=== PATIENT | female | born 1950 | race Caucasian/White ===

== ENCOUNTER 2017-05-24 12:57 | Inpatient (IN) | payer MEDICARE, OTHER ==
--- NOTE | ~2017-05-24 | CT71 ---
[facility] A Service of [facility] & [facility] RADIOLOGY TEXT RESULTS PATIENT: JENNIFER VILLARREAL LOCATION: [facility] 330-01 : [birth year] UNIT #: [id number] AGE: [address]: Shila Nolan MD SEX: F ORDER DR: [id number] [facility] [address]. [place], [place] [address] [id number] I MR#: [id number] #: [id number] NAME: JENNIFER VILLARREAL : 1950 SEX: F STUDY DATE/TIME: 05/24/2017 16:44 UNIT: A PCU ROOM: 330 STUDY DESCRIPTION: CT Head Wo Contrast Attending Physician: Shila Nolan M.D. Ordering Physician: Gris Saenz M.D. Primary Care Physician: Reina Riojas M.D. MEDICAL IMAGING REPORT This report is preliminary unless electronic signature is present EXAM CT head, 05/24/2017. HISTORY Dizzy for 1 week. Sent by [facility]. Blurred vision, seeing spots. TECHNIQUE CT head performed skull base through vertex without intravenous contrast. Study degraded by streak/motion artifact despite repetition of some images. This CT exam was performed with one or more of the following radiation dose reduction techniques: automatic exposure control, adjustment of mA and/or kV according to patient size, and iterative reconstruction. COMPARISON 07/03/2011 FINDINGS Brainstem unremarkable. The cerebellum shows no acute abnormality. In the posteromedial right parietooccipital lobe, there is an area of diminished russo matter-white matter differentiation measuring approximately 3.3 cm x 2.3 cm, new compared to prior examination. Appearance suggests subacute ischemic infarct. There is some mild associated edema and loss of sulcation in this region. There is no significant midline shift. There is no evidence of hemorrhagic conversion. This is probably in the right posterior cerebral artery distribution. No other areas of acute to subacute cortical ischemia are clearly suggested. There are no areas of hemorrhage. The ventricles, cisterns, and sulci show mild overall enlargement consistent with mild generalized atrophy. Basal ganglia show small chronic-appearing lacunar infarct in the left caudate nucleus head. No intracranial fluid collection. There are cavernous carotid and distal vertebral arterial calcifications. The intraorbital soft tissues are unremarkable. The [facility] A Service of [facility] RADIOLOGY TEXT RESULTS PATIENT: JENNIFER VILLARREAL LOCATION: [facility] 330-01 : [birth year] UNIT #: [id number] AGE: [address]: Shila Nolan MD SEX: F ORDER DR: visualized paranasal sinuses and mastoid air cells are clear. No fracture. IMPRESSION 1. Abnormal examination. In the posteromedial right parietooccipital junction region, there is an area of diminished russo matter-white matter differentiation measuring 2.3 cm x 3.3 cm. Appearance favors acute to subacute ischemia/ischemic infarct. There is mild associated edema with loss of sulcation but there is no midline shift or downward herniation. There is no associated hemorrhage. This is probably in the distribution of right posterior cerebral artery. 2. No other clearly acute abnormalities are seen. The study is degraded by motion artifact despite repetition of some images. 3. There are relatively mild periventricular and deep white matter tract probable sequelae of chronic microvascular ischemia. There is mild generalized atrophy. There are cavernous carotid and distal vertebral arterial calcifications. Dictated by... Earl Acevedo M.D. THIS IS AN ELECTRONICALLY VERIFIED REPORT Earl Acevedo M.D. at 05/25/2017 10:21 AM Lavern TD: 05/25/2017 09:43 JOB #: [id number] MEDICAL IMAGING REPORT Page 1 of 1 COPY
--- NOTE | ~2017-05-24 | CO ---
Unit #: [id number] #: [id number] Patient: JENNIFER VILLARREAL [id number] [facility] [address]. [place], [place] [address] [id number] I MR#: [id number] NAME: JENNIFER VILLARREAL ROOM: 330 Age: 66 Sex: F Admission Date: 05/24/2017 : 1950 Attending Physician: Shila Nolan M.D. Primary Care Physician: Reina Riojas M.D. Consultation Date: 05/25/2017 CONSULTATION REPORT PRIMARY CARE PHYSICIAN Dr. Reina Riojas. CONSULTING PHYSICIAN Dr. Jen Jay. REASON FOR CONSULTATION Subacute CVA. PATIENT IDENTIFICATION This is a 66-year-old right-handed female, evaluated in room 330 at [facility]. SOURCE OF INFORMATION Obtained from the patient as well as medical record. HISTORY OF PRESENT ILLNESS This is a very pleasant 66-year-old right-handed female, with a past medical history of anemia, TIA, anxiety, depression, hypertension, COPD, diabetes mellitus type 2, reformed smoker, who presents to [facility] with complaints of feeling off balance and vision loss for approximately one week. Apparently about a week ago, she was in her usual state of health when she noticed that she was having difficulty with ambulation, she feels as though she lost her balance. She states that she did not feel weak on one side or the other, but simply that she fell off balanced. She denies loss of consciousness. She states that she was afraid to drive as she felt as though she was having some trouble with her vision as well. She states that her vision felt more blurred, but was worried about that and just overall felt as though "something was off." She called her ex-, who lives in the same apartment building with her, and he subsequently, took her to [facility] on the day of admission, where they were instructed to go to the emergency room. She subsequently presented to [facility]. She underwent a CT of the head, which did reveal hypodensity in the right PERSONNEL SPECIALIST territory concerning for acute to subacute ischemic infarct. She was admitted for workup and further evaluation of stroke and also atrial fibrillation as she was found to be in atrial fibrillation on the monitor. However, she is converted to normal sinus rhythm. She has been complaining of heart palpitations for several months. Cardiology is evaluating from that standpoint. She is unaware of any prior diagnosis of atrial fibrillation or any heart disease. She denies any headache, fever, chills, nausea, vomiting, change in weight or routine, change in medications, loss of consciousness, or loss of awareness. She denies any focal weakness or paresthesia, shortness of air, chest pain, or abdominal Unit #: [id number] #: [id number] Patient: JENNIFER VILLARREAL. Otherwise, pertinent positives are as discussed above review of systems. PAST MEDICAL HISTORY 1. Hernia repair with infected wound mesh in 2013, admitted to [facility]. 2. Morbid obesity. 3. Reformed smoker, she quit 18 years ago. 4. Diabetes mellitus type 2. 5. Chronic anemia. 6. GERD. 7. TIA, details unknown. 8. Trigeminal neuralgia. 9. Anxiety. 10. Depression. 11. Hypertension. 12. COPD. 13. Bilateral tubal ligation. 14. . ALLERGIES 1. Sulfa. 2. Codeine. 3. Diphenhydramine. 4. Atrovent. HOME MEDICATIONS As per med rec include: 1. Albuterol sulfate. 2. Ventolin inhaler. 3. Glucophage. 4. Atorvastatin. 5. Metoprolol tartrate. 6. Zestril. 7. Prilosec. 8. Carbatrol. 9. Vitamin D. 10. Enteric-coated aspirin 1 tab p.o. daily. REVIEW OF SYSTEMS A 14-point review of systems attempted. Pertinent positives are as discussed above, otherwise negative. PHYSICAL EXAMINATION VITAL SIGNS: Temperature 98.6, she has been afebrile, pulse , respirations 18, blood pressure 101/52, blood pressure in the ER on arrival was 136/69, oxygen saturation 100%. Height 5 feet 0 inches, weight 261 pounds, BMI 51. NEUROLOGIC: The patient is awake, fully alert, and oriented x4. Speech is clear. She recognizes her ex- at the bedside. She follows simple commands and 2- and 3-step commands without difficulty. She has no right or left confusion. No finger agnosia. No aphasia, dysarthria, or apraxia. Cranial nerve exam, she demonstrates a left homonymous hemianopia. Eyes are conjugate without ptosis or nystagmus. Extraocular movements are intact. Sensation of face and scalp is intact. Strength of the muscles of facial expression is intact. Hearing is intact to finger rub and conversation. Tongue is midline. Uvula is midline. Palate elevation is normal. Head turning and shoulder shrug are unremarkable. Neck is supple. Motor exam, she Unit #: [id number] #: [id number] Patient: JENNIFER VILLARREAL demonstrates normal bulk and tone. Strength is equal 5/5 in all extremities. Sensory exam intact. No extinction appreciated. Gait deferred. Romberg deferred. Reflexes, unable to elicit coordination unremarkable. left homonymous hemianopia and one for some minimal visual neglect. DIAGNOSTIC STUDIES IMAGING STUDIES: CT of the head without contrast on 05/24/2017; impression per Radiology report. Abnormal examination in the posterior medial right parietal-occipital junction region, there is an area of diminished russo-white matter differentiation measuring 2.3 x 3.3 cm acute to subacute ischemic infarct. There is mild associated edema with loss of sulcation, but there is no midline shift or downward herniation. There is no associated hemorrhage. This is probably in the distribution of the right posterior cerebral artery. No other clearly acute abnormality seen. Study is degraded by motion artifact despite repetition of some images. There are relatively mild periventricular deep white matter , probable sequelae of chronic microvascular ischemia. There is mild generalized atrophy. There are cavernous carotid and distal vertebral arterial calcification. Laboratory data: CBC on arrival shows a white count of 9.6, hemoglobin 12, hematocrit of 37.6, platelet count 280. BMP on arrival is unremarkable, other than a GFR of 58.3, creatinine is 1. Alkaline phosphatase is 126. Initial troponin less than 0.05. Urinalysis unremarkable. Repeat troponin less than 0.05. CPK 53. Urine drug screen unremarkable. TSH 1.91, B12 of 299, hemoglobin A1c 6.1, CRP 0.9. Other labs and diagnostic studies are as per chart and have been reviewed. IMPRESSION 1. Subacute right posterior cerebral artery territory ischemic stroke with left homonymous hemianopia likely secondary to atrial fibrillation. 2. Atrial fibrillation, now converted to sinus rhythm. 3. Diabetes mellitus type 2. 4. Chronic obstructive pulmonary disease. 5. Reformed smoker x18 years. 6. Morbid obesity. PLAN The patient needs long-term anticoagulation given her CHADS2 VASc score, but she is at risk currently for hemorrhage given the location and timing of her stroke. I discussed with Dr. Sanabria and also with Cardiology. At this time, recommend full-dose aspirin for another week. The symptoms have been going on for 7 to 10 days and then recommend switching to anticoagulation NOAC or warfarin upon evaluation cardiac camacho, and if we find out left atrial appendage clot or fresh thrombus, then we may have to consider anticoagulation sooner. A 2D echo is pending and she needs a IRENE pending, those echo results will be followed up on that with Cardiology, we will also request a CT angiogram to look at intracranial vessels and rule out any extensive posterior circulation, intracranial atherosclerosis. Further recommendations to be made pending workup and further clinical course. She is not a candidate for acute intervention or thrombectomy. Symptoms have been ongoing for several days. We will follow along with you. We thank you very much for allowing us to assist in the care of this patient. The patient was seen by him, he agrees to the above. Please see his note. Unit #: [id number] #: [id number] Patient: JENNIFER VILLARREAL Dictated by... Sonia Kerr A.P.R.N. for Flor Espinoza/alexis TD: 05/26/2017 16:14 JOB #: [id number] CONSULTATION REPORT Page 1 of 1 X Sonia Kerr APRN X CONSULTATION REPORT
--- NOTE | ~2017-05-24 | EKG ---
PATIENT: JENNIFER VILLARREAL UNIT #: [id number] Ventricular Rate: 69 BPM Atrial Rate: 69 BPM P-R Interval: 158 ms QRS Duration: 92 ms Q-T Interval: 412 ms QTC Calculation(Bezet): 441 ms P Hague: 34 degrees Calculated R Hague: -31 degrees Calculated T Hague: 66 degrees Diagnosis Line: Normal sinus rhythm Diagnosis Line: Possible Left atrial enlargement Diagnosis Line: Left axis deviation Diagnosis Line: Abnormal ECG Diagnosis Line: When compared with ECG of 22-DEC-2016 13:07, Diagnosis Line: No significant change was found Diagnosis Line: Confirmed by BETH ALMANZAR MD ([id number]) on Diagnosis Line: 05/25/2017 11:10:45 AM INTERPRETING MD: YOHAN BUCK
--- NOTE | ~2017-05-24 | EKG ---
PATIENT: JENNIFER VILLARREAL UNIT #: [id number] Ventricular Rate: 129 BPM Atrial Rate: 129 BPM P-R Interval: 216 ms QRS Duration: 84 ms Q-T Interval: 336 ms QTC Calculation(Bezet): 492 ms P Enterprise: 100 degrees Calculated R Enterprise: -24 degrees Calculated T Enterprise: 71 degrees Diagnosis Line: Atrial fibrillation Abnormal ECG Diagnosis Line: When compared with ECG of 24-MAY-2017 13:12, Diagnosis Line: (unconfirmed) Diagnosis Line: Premature atrial complexes are now Present Diagnosis Line: OK interval has increased Diagnosis Line: Vent. rate has increased BY 60 BPM Diagnosis Line: Confirmed by ALEX NELSON MD ([id number]) on 05/27/2017 Diagnosis Line: 7:52:59 AM INTERPRETING MD: LESLIE BUCK
--- NOTE | ~2017-05-24 | BMI ---
[employer] Nutrition Therapy DATE: 05/25/17 Patient: JENNIFER VILLARREAL Physician: DAMIÁN Address: [address] Room/Bed: [address] [place] [address], Zip: [place] [address] Admit Date: 05/24/17 Date of : [birth year] Height: 5 0 Weight: 261 118.4 HIGH BMI NOTE: ANTHROPOMETRICS: HT: 60" WT: 118.4 KG BMI: 51 DIET: CONSISTENT CARBOHYDRATE RECOMMENDATIONS: 1. ADD HEART HEALTHY DIET RESTRICTION TO PROMOTE GRADUAL WEIGHT LOSS TOWARDS HEALTHY BMI. Respectfully, SHAHID JACK RD, LD [employer] [facility] cc: client file
--- NOTE | ~2017-05-24 | HP ---
Unit #: [id number] #: [id number] Patient: JENNIFER VILLARREAL [id number] [facility]. [place], [place] [address] [id number] MR#: [id number] NAME: JENNIFER VILLARREAL ROOM: Age: 66 Sex: F Admission Date: 05/24/2017 : 1950 Attending Physician: Jeremy Varghese M.D. Primary Care Physician: Reina Riojas M.D. HISTORY AND PHYSICAL REASON FOR ADMISSION Subacute CVA, visual loss, atrial fibrillation new onset. HISTORY OF PRESENT ILLNESS The patient is a 66-year-old female who states over the past seven days she has had off and on difficulty with ambulation. She has become quite ataxic at home. She lost her balance several times. She had no formal syncopal episodes; however, she states that she had to holds onto her rails in her home, was afraid to drive. She called her ex- who takes care of her. He subsequently took her to [facility] where they asked him to take her to the emergency room. She subsequently presented here where she underwent a CT head which did reveal a right occipital subacute CVA, official report not available to me. At the present time, on the monitor, patient is noted to be in atrial fibrillation. Although EKG performed shows normal sinus, the monitor shows afib. Patient is unaware of any prior diagnosis of atrial fibrillation. Patient denies any sick contacts. No nausea or vomiting. She has had difficulty with ambulation as outlined above. She states that about six months ago she began developing heart palpitations as well as mild chest discomfort but she did not see her primary care physician for. She also tells me she quit smoking approximately 18 years ago and she takes her medications as prescribed. PAST MEDICAL HISTORY 1. Hernia repair with infected wound mesh in 2013, admitted to [facility]. 2. Diabetes type 2. 3. Chronic anemia. 4. GERD. 5. TIA history. 6. Trigeminal neuralgia. 7. Anxiety. 8. Depression. 9. Hypertension. 10. COPD. 11. Prior history of dizziness. 12. Bilateral tubal ligation. 13. . 14. Prior history of tobacco abuse. Unit #: [id number] #: [id number] Patient: JENNIFER VILLARREAL CURRENT HOME MEDICATIONS 1. Albuterol nebulize solution q.6 h. 2. Ventolin p.r.n. 3. Metformin. 4. Atorvastatin. 5. Metoprolol. 6. Lisinopril. 7. Omeprazole. 8. Tegretol. 9. Vitamin D. SOCIAL HISTORY Negative tobacco use, negative alcohol use, negative illicit drug use per patient. FAMILY HISTORY Reviewed, positive diabetes, hypertension, coronary artery disease. ALLERGIES Atrovent, Benadryl, sulfa, codeine. REVIEW OF SYSTEMS Please see HPI. Twelve points otherwise negative except for those positive as noted in the HPI. PHYSICAL EXAMINATION VITAL SIGNS: Temperature 98.1, pulse 64, respiratory rate 16, blood pressure 136/69. GENERAL APPEARANCE: The patient is a 66-year-old very pleasant female lying in no acute distress. HEAD EXAM: Normocephalic and atraumatic. EAR EXAM: Tympanic membranes dry, without any erythema or injection. NECK EXAM: Supple. CVS: S1, S2, irregularly irregular. No murmur heard. RESPIRATORY: Prolonged expiration noted bilaterally. GI/ABDOMEN: Distended abdomen noted but nontender. LOWER EXTREMITIES: Have no evidence of any lower extremity edema, no calf tenderness. NEUROLOGICAL EXAM: Patient alert and oriented x3. Cranial nerves II through XII grossly intact with the exception patient does exhibit a visual loss in left visual field. She exhibits motor function 5/5 in both upper and lower extremities. PSYCHIATRIC EXAM: Patient demonstrates normal mood and affect. DIAGNOSTIC STUDIES LABORATORY: Initial laboratory studies show cardiac enzymes first set negative, urinalysis negative, BMP otherwise unremarkable, CBC shows a hemoglobin of 12, a white count of 9.6. INITIAL ADMISSION DIAGNOSES 1. Subacute cerebrovascular accident. 2. Visual loss. 3. New onset atrial fibrillation. 4. Chronic obstructive pulmonary disease history. 5. Heart palpitations x6 months. 6. Diabetes. 7. Anxiety/depression. Unit #: [id number] #: [id number] Patient: JENNIFER VILLARREAL 8. Prior history of tobacco abuse. PLAN Admission, stroke protocol, neurology consultation, routine laboratory studies, MRI/MRA brain/neck, cardiology consultation, 2D echocardiogram for new onset atrial fibrillation although initial EKG does not show but a heart monitor shows otherwise, PT/OT evaluation, symptom management. Plans were reviewed with patient in detail. She expresses understanding and agreement. She is a Full Code. All questions answered. Further hospital course to follow. Dictated by Flor Altman/nelson TD: 05/24/2017 19:28 JOB #: [id number] HISTORY AND PHYSICAL Page 1 of 1 X Jen Jay MD X HISTORY AND PHYSICAL
--- NOTE | ~2017-05-24 | CT17 ---
[facility] A Service of [facility] & [facility] RADIOLOGY TEXT RESULTS PATIENT: JENNIFER VILLARREAL LOCATION: [facility] 330- : [birth year] UNIT #: [id number] AGE: [address]: Shila Nolan MD SEX: F ORDER DR: [id number] [facility] [address] [place], [place] [address] [id number] I MR#: [id number] Acc #: [id number] NAME: JENNIFER VILLARREAL : 1950 SEX: F STUDY DATE/TIME: 05/25/2017 16:05 UNIT: [address] ROOM: [facility] STUDY DESCRIPTION: CT Angio Head Attending Physician: Shila Nolan M.D. Ordering Physician: Kamila Sanabria M.D. Primary Care Physician: Reina Riojas M.D. MEDICAL IMAGING REPORT This report is preliminary unless electronic signature is present EXAM CT scan of the head with angiographic reconstructions INDICATIONS Subacute stroke with headache starting today. Abnormal CT earlier today with low-density area in right occipital region. FINDINGS Please see CT ANGIO NECK report for combined text results. Dictated by... Guzman Bartlett M.D. THIS IS AN ELECTRONICALLY VERIFIED REPORT Guzman Bartlett M.D. at 05/26/2017 5:49 AM BROOKE/an TD: 05/26/2017 01:38 JOB #: [id number] MEDICAL IMAGING REPORT Page 1 of 1 COPY
--- NOTE | ~2017-05-24 | CT23 ---
[facility] A Service of [facility] & [facility] RADIOLOGY TEXT RESULTS PATIENT: JENNIFER VILLARREAL LOCATION: [facility] 330-01 : [birth year] UNIT #: [id number] AGE: [address]: Shila Nolan MD SEX: F ORDER DR: [id number] [facility] [address]. [place], [place] [address] [id number] I MR#: [id number] Acc #: [id number] NAME: JENNIFER VILLARREAL : 1950 SEX: F STUDY DATE/TIME: 05/25/2017 16:05 [facility] ROOM: 330 STUDY DESCRIPTION: CT Angio Neck Attending Physician: Shila Nolan M.D. Ordering Physician: Kamila Sanabria M.D. Primary Care Physician: Reina Riojas M.D. MEDICAL IMAGING REPORT This report is preliminary unless electronic signature is present EXAM CT scan of the head and neck with angiographic reconstructions INDICATIONS Subacute stroke with headache starting today. Abnormal CT earlier today with low-density area in right occipital region. TECHNIQUE The patient was given 100 mL of Isovue-370 and spiral imaging was performed from the aortic arch through the brain. 3-D reconstructions of the arteries were generated. NASCET criteria was utilized. This CT exam was performed with one or more of the following radiation dose reduction techniques: Automatic exposure control, adjustment of mA and/or kV according to patient size, and iterative reconstruction. FINDINGS The lung apices are clear. The thyroid gland and submandibular glands and parotid glands are normal in appearance. There are no neck masses or adenopathy. CT brain findings again show a hypodense area in the right occipital region. VASCULAR FINDINGS The aortic arch is normal in size. The great vessels are patent. The vertebral arteries both arise from the subclavian arteries and they appear normal and they unite to form the basilar artery. The common carotid arteries are normal up to the bifurcations where there is some calcifications bilaterally. There is no significant stenosis in the bulb or internal carotid arteries. The basilar artery appears normal. Posterior cerebral arteries seem to show a high-grade stenosis in the P2 portion of the right posterior cerebral artery. The left posterior cerebral artery is normal, and the anterior and middle cerebral arteries are normal. There is an anterior communicating artery present. [facility] A Service of [facility] & [facility] RADIOLOGY TEXT RESULTS PATIENT: JENNIFER VILLARREAL LOCATION: [facility] 330- : [birth year] UNIT #: [id number] AGE: [address]: Shila Nolan MD SEX: F ORDER DR: IMPRESSION 1. There appears to be a high-grade stenosis in the distal right posterior cerebral artery which seems to correspond with the area of subacute ischemic change. 2. Otherwise, the CTA of the head and neck is normal, except for minimal calcified plaques in the carotid bifurcation regions. Dictated by... Guzman Bartlett M.D. THIS IS AN ELECTRONICALLY VERIFIED REPORT Guzman Bartlett M.D. at 05/26/2017 5:49 AM BROOKE/an TD: 05/26/2017 01:35 JOB #: [id number] MEDICAL IMAGING REPORT Page 1 of 1 COPY
--- NOTE | ~2017-05-24 | DS ---
Unit #: [id number] #: [id number] Patient: JENNIFER TIDWELL [id number] [address] [address] [id number] I MR#: [id number] NAME: JENNIFER TIDWELL ROOM: 330 Age: 66 Sex: F Admission Date: 05/24/2017 : 1950 Discharge Date: 05/26/2017 Attending Physician: Shila Nolan M.D. Primary Care Physician: Reina Riojas M.D. DISCHARGE SUMMARY PRINCIPAL DIAGNOSES 1. Subacute right occipital cardioembolic CVA. 2. Paroxysmal atrial fibrillation, now converted to normal sinus rhythm. 3. 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 4. Mild vitamin B12 deficiency with a vitamin B12 level of 299. 5. Diabetes mellitus type 2, controlled with hemoglobin A1C of 6.0. 6. Anxiety and depression. 7. Hypertension. 8. Chronic obstructive pulmonary disease. 9. Probable obstructive sleep apnea. 10. Mild protein malnutrition. 11. Morbid obesity. 12. Mild to moderate aortic stenosis. 13. Chronic diastolic congestive heart failure without exacerbation. CONSULTANTS Dr. Sanabria, neurology. Dr. Nazario, cardiology. PROCEDURES PERFORMED Two-dimensional echocardiogram on 05/25/2017, with mild to moderate aortic stenosis. Mild tricuspid regurgitation. Right ventricular systolic pressure of 35 mmHg. Moderately to severe dilated left ventricular atrium. Mild concentric left ventricular hypertrophy noted. Grade 2 diastolic dysfunction noted. DIAGNOSTIC DATA IMAGING: CT of the head without contrast on 05/24/2017 with diminished russo-white matter differentiation measuring 2.3 x 3.3 cm in the posteromedial right parietal occipital region. This is consistent with subacute infarct. Mild associated edema noted. Mild periventricular and deep white matter tract sequelae of small vessel disease noted. CT angiogram of the head and neck on 05/25/2017 with high-grade stenosis in the distal right posterior cerebral artery. CTA otherwise normal. MRI of the brain without contrast on 05/25/2017 with a 3.5 x 2 cm subacute ischemia change in the right occipital lobe. CLINICAL HISTORY/HOSPITAL COURSE Ms. Tidwell is a nice 66-year-old female who presented to the emergency department with a 7-day history of visual change. Please refer to history and physical for further details. CT scan of the head revealed subacute infarct of the right parietooccipital region and the patient was Unit #: [id number] #: [id number] Patient: JENNIFER TIDWELL subsequently admitted. Neurology was consulted in regard to the patient's stroke. It was noted on hospitalization, as outlined below, that the patient had paroxysmal atrial fibrillation. Two-dimensional echo was done as noted. Given the patient's high CHADS 2 VAD score, it is felt that she would benefit from anticoagulation in addition to lipid lowering therapy and lifestyle modification. We are going to place her on Xarelto, assuming it is not cost prohibitive. She will follow up with neurology as an outpatient. I will note she does have high-grade stenosis of the right CARTOGRAPHY TECHNICIAN and this can be followed up by neurology as an outpatient as well, with intervention as necessary. In regard to the patient's atrial fibrillation, again, this was noted during hospitalization. The patient had symptomatic palpitations at home intermittently for the last six months. Cardiology was consulted. The patient's CHADS 2 VAD score is approximately, thus indicating she needs anticoagulation. She has been converted back to normal sinus rhythm on medications as outlined below. Given she is currently in normal sinus rhythm, we are going to hold anticoagulation for one week due to her stroke, given it is of decent size. She will initiate Xarelto as outlined below. The patient's other chronic conditions remained stable and she will be discharged home today. DISCHARGE CONDITION Stable. DISPOSITION Discharge to home. DISCHARGE MEDICATIONS 1. Albuterol sulfate nebulizer solution, 3 ml q.i.d. p.r.n. shortness of breath. 2. Ventolin 2 puffs q.i.d. p.r.n. shortness of breath. 3. Carbamazepine 300 mg t.i.d. 4. Metformin at home dose b.i.d. 5. Cardizem 30 mg t.i.d. 6. Metoprolol tartrate 25 mg b.i.d. 7. Lipitor 40 mg at bedtime. 8. Lisinopril 40 mg daily. 9. Aspirin 81 mg daily. 10. Prilosec 40 mg daily. 11. Vitamin D 2000 units daily. 12. Vitamin B12 1000 mcg p.o. daily. 13. Xarelto 20 mg daily beginning 05/31/2017. DIET The patient is instructed to follow a heart healthy, constant carb diet. ACTIVITY She can increase her activity as tolerated. She is not allowed to drive at this time due to her vision change and her ex- agrees to be her transport. FOLLOWUP 1. The patient is to follow up with Dr. Jelani Springer of outpatient Unit #: [id number] #: [id number] Patient: JENNIFER TIDWELL neurology in four to six weeks. 2. The patient will follow up with Dr. Nazario in four weeks as well. 3. She can follow up with her primary care provider in two to four weeks. 4. She has been counseled regarding weight loss and needs outpatient sleep apnea study. Dictated by... Shila Nolan M.D. JASON/kortney TD: 05/27/2017 15:53 JOB #: [id number] DISCHARGE SUMMARY Page 1 of 1 X Shila Nolan MD X DISCHARGE SUMMARY
--- NOTE | ~2017-05-24 | MR18 ---
[facility] A Service [facility] RADIOLOGY TEXT RESULTS PATIENT: JENNIFER VILLARREAL LOCATION: [facility] 330- : [birth year] UNIT #: [id number] AGE: [address]: Shila Nolan MD SEX: F ORDER DR: [id number] [id number] [facility]. [place], [place] [address] [id number] I MR#: [id number] #: [id number] NAME: JENNIFER VILLARREAL : 1950 SEX: F STUDY DATE/TIME: 05/25/2017 23:17 [facility]: [facility] STUDY DESCRIPTION: MR Brain Wo Contrast Attending Physician: Shila Nolan M.D. Ordering Physician: Kamila Sanabria M.D. Primary Care Physician: Reina Riojas M.D. MRI CENTER REPORT This report is preliminary unless electronic signature is present. EXAM MRI of the brain without contrast INDICATIONS Dizziness and blurry vision off and on for [address] scan showing right posterior cerebral artery subacute infarct. TECHNIQUE Sagittal T1-weighted images and axial T1, T2, FLAIR and diffusion images were obtained. FINDINGS The study is degraded by motion. The pituitary gland and foramen magnum region are normal. The diffusion series does show restricted diffusion in the medial right occipital lobe measuring about 3.6 cm in maximum dimension. No other abnormal diffusion is identified. The ventricles and subarachnoid spaces are otherwise normal. IMPRESSION There is about a 3.5 cm x 2-cm area of subacute ischemic change in the right occipital lobe corresponding with what was seen on the CT scan earlier. Otherwise, the MRI of the brain appears normal. Dictated by... Guzman Bartlett M.D. THIS IS AN ELECTRONICALLY VERIFIED REPORT Guzman Bartlett M.D. at 05/26/2017 5:49 AM FEL/psc TD: 05/26/2017 02:59 [facility] A [facility] RADIOLOGY TEXT RESULTS PATIENT: JENNIFER VILLARREAL LOCATION: [facility] 330-01 : [birth year] UNIT #: [id number] AGE: [address]: Shila Nolan MD SEX: F ORDER DR: JOB #: [id number] MRI CENTER REPORT Page 1 of 1 COPY
--- NOTE | ~2017-05-24 | CO ---
Unit #: [id number] #: [id number] Patient: JENNIFER VILLARREAL [id number] [address] [place], [place] [address] [id number] I MR#: [id number] NAME: JENNIFER VILLARREAL ROOM: 330 Age: 66 Sex: F Admission Date: 05/24/2017 : 1950 Attending Physician: Shila Nolan M.D. Primary Care Physician: Reina Riojas M.D. Consultation Date: 05/25/2017 CONSULTATION REPORT REASON FOR CONSULT New-onset atrial fibrillation. HISTORY OF PRESENT ILLNESS This is a 66-year-old morbidly obese female with a past medical history of previous TIA, hypertension, hyperlipidemia, diabetes mellitus, COPD, anxiety, and depression. According to the patient, she has been having issues with her vision for approximately one week to 10 days. Yesterday, she presented to [facility] [place] [facility] for that reason. The patient reported blurry vision, increasing weakness but she also reports that she is having episodes of palpitations approximately the last six months. These were associated with lightheadedness, dizziness, as well as, shortness of breath. She denies any complaints of chest pain or syncope. [facility] immediately sent the patient to the emergency room for evaluation. She had a CT scan of the head which shows a right-sided large HISTORICAL SITE GUIDE stroke. Patient was also noted to be in atrial fibrillation with rapid ventricular response, rate of 129 beats per minute, QTc interval of 492 ms. She was in the emergency room given a Cardizem bolus and started on a Cardizem drip which has converted her rhythm into normal sinus rhythm at this time. Initial cardiac enzymes have been negative. Neurology has been consulted to see the patient. PAST MEDICAL HISTORY 1. Hypertension. 2. Hyperlipidemia. 3. Diabetes mellitus. 4. COPD. 5. Anxiety and depression. 6. GERD. 7. History of TIAs in the past. 8. Echocardiogram in 2013 shows LV EF of 60%, heavily calcified mitral valve with some mild mitral stenosis and mild mitral regurgitation. RVSP was normal. 9. Trigeminal neuralgia. PAST SURGICAL HISTORY 1. Hernia repair with infected wound mesh in 2013. 2. Bilateral tubal ligation. 3. . CURRENT HOME MEDICATIONS 1. Albuterol sulfate q.i.d. 2. Ventolin two puffs inhalation q.i.d. as needed. 3. Glucophage one tab p.o. b.i.d. Unit #: [id number] #: [id number] Patient: JENNIFER VILLARREAL 4. Lipitor one tab p.o. daily. 5. Metoprolol tartrate 25 mg p.o. b.i.d. 6. Zestril 40 mg p.o. daily. 7. Prilosec 40 mg p.o. daily. 8. Carbamazepine one tab p.o. t.i.d. 9. Vitamin D one capsule p.o. daily. 10. Aspirin one tablet p.o. daily. SOCIAL HISTORY The patient is a reformed smoker, one pack a day for approximately 30 years, states she quit approximately 18 years ago. Denies illicit drugs or alcohol use. FAMILY HISTORY Positive for stroke in her mother as well as CAD and NH in her, she believes, 60s. ALLERGIES Benadryl, sulfa, and codeine. REVIEW OF SYSTEMS Positive for palpitations, shortness of breath, occasional intermittent lower extremity swelling, blurred vision, recent weight loss, and fatigue. PHYSICAL EXAMINATION VITAL SIGNS: Temperature 97.8, respiratory rate 18, pulse 76 to 80s. She is currently in normal sinus rhythm. Blood pressure 143/68. BMI is 51. GENERAL APPEARANCE: This is a pleasant 66-year-old morbidly obese female who is in the room and conversive. She is in no acute distress. Her ex- is currently at the bedside. HEENT: Head is atraumatic, normocephalic. Pupils are equal and round. NECK: Trachea is midline. No JVD. Questionable carotid bruit right carotid artery. No thyromegaly or lymphadenopathy. CARDIOVASCULAR: S1, S2. Regular rate and rhythm. No murmur, gallop, or rub. RESPIRATORY: Lungs are clear, slightly diminished in the bases. ABDOMEN: Obese pannus. Soft, nontender, nondistended. Bowel sounds are present. EXTREMITIES: Pulses are palpable. No clubbing, cyanosis, or edema. NEUROLOGIC: She is alert and oriented x3. She moves all extremities equally. She follows commands with ease. DIAGNOSTIC STUDIES LABORATORY: Sodium 139, potassium 4.2, chloride 109, CO2 of 22, BUN 17, creatinine 0.8, glucose 90. TSH 1.91, magnesium 2.1. Initial cardiac enzymes have been negative x2. Hemoglobin 11.1, hematocrit 35.7, WBC 8.2, platelet count 334,000. IMAGING: CT of the head shows posterior medial right parietooccipital junction region there is an area of diminished russo matter-white matter differentiation measuring 2.3 x 3.3 cm. Appearance favors acute to subacute ischemia or infarct. There is mild associated edema with loss of sulcation but there is no midline shift or downward herniation. There is no associated hemorrhage. This is probably in the distribution of the right posterior cerebral artery. There are relatively mild periventricular and deep white matter tract, probably sequela of chronic microvascular ischemia. This is mild generalized atrophy. There are cavernous carotid and distal vertebral arterial calcifications. Unit #: [id number] #: [id number] Patient: JENNIFER VILLARREAL CARDIOVASCULAR: EKG shows initial atrial fibrillation 129 beats per minute. Repeat EKG today shows normal sinus rhythm, rate of 72 beats per minute. Left atrial enlargement is present. QTc interval 473 ms. No acute ischemic changes noted. IMPRESSION 1. Large posterior communicating artery stroke, per neurology. 2. New-onset atrial fibrillation, converted with Cardizem, currently in normal sinus rhythm. 3. Vision loss, left side. 4. History of previous transient ischemic attacks. 5. Hypertension. 6. Hyperlipidemia. 7. Diabetes mellitus. 8. Morbid obesity with a body mass index of 51. PLAN This is a patient with a large stroke, HISTORICAL SITE GUIDE territory per neurology, likely from cardioembolic event secondary to her atrial fibrillation. She definitely needs anticoagulation. Her CHADS VASc 2 is 6 but the issue is when. This is to be determined and discussed between neurology and cardiology attending. Currently okay for aspirin 325 mg p.o. daily. At present, her atrial fibrillation has been converted with Cardizem to a normal sinus rhythm. Will discontinue Cardizem drip and start the patient on oral Cardizem 30 mg p.o. t.i.d. with parameters in addition to her current metoprolol dosing. Will check 2D echocardiogram. Pending on the outcome of that, the patient may also need workup with IRENE. Of note, at a later date the patient will also need ischemic workup secondary to she is high risk with multiple risk factors for coronary artery disease which include hypertension, hyperlipidemia, diabetes mellitus, family history of coronary artery disease, and morbid obesity. This can be done on an outpatient basis within the next three months or so. Further recommendations pending Dr. Schaffer's assessment. Dictated by... Anat Portillo TD: 05/25/2017 16:25 JOB #: [id number] CONSULTATION REPORT Page 1 of 1 X Carmen Yu APRN X CONSULTATION REPORT
--- NOTE | ~2017-05-24 | EKG ---
PATIENT: JENNIFER VILLARREAL UNIT #: [id number] Ventricular Rate: 72 BPM Atrial Rate: 72 BPM P-R Interval: 172 ms QRS Duration: 100 ms Q-T Interval: 432 ms QTC Calculation(Bezet): 473 ms P [place]: 52 degrees Calculated R [place]: -20 degrees Calculated T [place]: 80 degrees Diagnosis Line: Normal sinus rhythm Diagnosis Line: Possible Left atrial enlargement Diagnosis Line: Prolonged QT Diagnosis Line: Abnormal ECG Diagnosis Line: When compared with ECG of 24-MAY-2017 18:52, Diagnosis Line: (unconfirmed) Diagnosis Line: Premature atrial complexes are no longer Present Diagnosis Line: MD interval has decreased Diagnosis Line: Vent. rate has decreased BY 57 BPM Diagnosis Line: Confirmed by GENARO THAKKAR MD ([id number]) on Diagnosis Line: 05/25/2017 4:25:07 PM INTERPRETING MD: BUNNY
[~2017-05-24 12:57] MED LIST: ADVAIR 500-501 EACH IH; ALBUTEROL0.63 MG/3 NEB; ALBUTEROL0.83 MG/ML IH; ALBUTEROL17 GM INH; ALBUTEROL17 GM NEB; ALLEGRA180 MG PO; ASPIRIN EC81 M1 PO; ASPIRIN81 M1 PO; ASPIRIN81 M2 PO; BUPROPION HCL150 M1 PO; CARBATROL200 MG PO; CORDARONE200 M1 PO; FLONASE 0.05% N16 G1; GLUCOPHAGE500 M1 PO; GLUCOPHAGE500 MG PO; HYDRALAZINE HCL25 MG PO; HYDROCHLOROTHIA25 MG PO; KEFLEX500 M2 PO; LINZESS290 MCG PO; LIPITOR40 MG PO; LISINOPRIL PO; MAGOX 400400 MG PO; MECLIZINE HCL12.5 MG PO; METOPROLOL TAR25 MG PO; MOBIC PO; OMEPRAZOLE20 M2 PO; OXYCODONE-ACET1 EACH PO; PERCOCET 5-3251 TAB PO; PRILOSEC PO; PROAIR HFA8.5 GM IN; REGLAN10 MG PO; SPIRIVA18 MCG INH; TOPROL XL PO; VITAMIN D 22000 UNIT PO; ZESTRIL40 MG PO; ZOFRAN PO
[2017-05-24 14:23] LABS: BASOPHIL# 0.1 X10e3 (0-0.3); BASOPHIL% 0.6 % (0-2.5); EOSINOPHIL# 0.1 X10e3 (0-0.7); EOSINOPHIL% 1.3 % (0.0-7.0); HEMATOCRIT 37.6 % (35.0-45.0); LYMPHOCYTE# 2.1 X10e3 (1.0-3.5); LYMPHOCYTE% 21.4 % (17.0-45.0); MEAN CELL VOLUME 82.7 FL (83-96); MEAN CORPUSCULAR HEMOGLOBIN 26.4 PG (28-34); MEAN CORPUSCULAR HGB CONC 31.9 g/dL (30-36); MEAN PLATELET VOLUME 9.3 FL (6.5-11.5); MONOCYTE# 0.5 X10e3 (0-1.0); MONOCYTE% 5.5 % (3.0-12.0); NEUTROPHIL# 6.9 X10e3 (1.5-7.1); NEUTROPHIL% 71.2 % (40-75); PLATELET COUNT 280 X10e3 (140-420); RED BLOOD COUNT 4.55 X10e (3.90-5.30); RED CELL DISTRIBUTION WIDTH 16.3 % (11.0-15.5); WHITE BLOOD COUNT 9.6 X10e3 (4.0-10.5)
[2017-05-24 14:24] LABS: DIFF IND NO
[2017-05-24 14:44] LABS: BILIRUBIN, DIRECT 0.1 mg/dL (0.0-0.2); BILIRUBIN,INDIRECT 0.5 mg/dL (0.0-0.9); BILIRUBIN,TOTAL 0.6 mg/dL (0.2-2.0); GLOM FILT RATE Estimated 58.3 mL/min (>60); POTASSIUM 4.2 mmol/L (3.5-5.1); PROTEIN TOTAL SERUM 7.3 g/dL (6.0-8.3)
[2017-05-24 14:57] LABS: POC - CKMB <1.0 ng/mL (0.0-7.9); POC - TROPONIN <0.05 ng/mL (<=0.05)
[2017-05-24 16:54] LABS: URINE SOURCE CLEAN CATCH
[2017-05-24 17:09] LABS: URINE APPEARANCE CLEAR; URINE BILIRUBIN NEG (NEG); URINE BLOOD NEG (NEG); URINE COLOR YELLOW; URINE GLUCOSE NEG (NEG); URINE KETONE NEG (NEG); URINE LEUKOCYTE ESTERASE NEG (NEG); URINE NITRATE NEG (NEG); URINE PH 5.5 (5-8); URINE PROTEIN NEG (NEG); URINE SPECIFIC GRAVITY 1.018 (1.003-1.035); URINE UROBILINOGEN 0.2 MG/DL (NEG)
[2017-05-24 17:17] LABS: CULTURE INDICATED? NO
[2017-05-24 17:57] LABS: POC - CKMB 1.4 ng/mL (0.0-7.9); POC - TROPONIN <0.05 ng/mL (<=0.05)
[2017-05-25] MEDS ORDERED: METOPROLOL TAR25 MG PO (04:26)
[2017-05-25 05:13] LABS: HEMATOCRIT 35.7 % (35.0-45.0); HEMOGLOBIN 11.1 gm/dL (12.0-16.0); MEAN CELL VOLUME 83.9 FL (83-96); MEAN CORPUSCULAR HEMOGLOBIN 26.2 PG (28-34); MEAN CORPUSCULAR HGB CONC 31.2 g/dL (30-36); RED BLOOD COUNT 4.25 X10e (3.90-5.30); RED CELL DISTRIBUTION WIDTH 16.1 % (11.0-15.5); WHITE BLOOD COUNT 8.2 X10e3 (4.0-10.5)
[2017-05-25 06:03] LABS: ALBUMIN SERUM 3.4 g/dL (3.5-5.0); BILIRUBIN,TOTAL 1.1 mg/dL (0.2-2.0); BUN/CREATININE RATIO 21.25; CALCIUM SERUM 8.4 mg/dL (8.4-10.2); CREATININE SERUM 0.8 mg/dL (0.6-1.4); GLOM FILT RATE Estimated 76.4 mL/min (>60); MAGNESIUM 2.1 mg/dL (1.6-3.0); POTASSIUM 4.2 mmol/L (3.5-5.1); PROTEIN TOTAL SERUM 6.4 g/dL (6.0-8.3)
[2017-05-25 06:17] LABS: AMPHETAMINE NEG (NEG); BARBITURATES NEG (NEG); BENZODIAZEPINES NEG (NEG); COCAINE NEG (NEG); MARIJUANA NEG (NEG); OPIATES NEG (NEG); TRICYCLIC ANTIDEPRESSANTS NEG (NEG); U METHADONE NEG (NEG)
[2017-05-26] MEDS ORDERED: CARDIZEM30 MG PO (14:39)
[2017-05-26] MEDS ORDERED: CYANOCOBALAM1000 MCG PO (14:41)
[2017-05-26] MEDS ORDERED: XARELTO20 MG PO (14:42)
== END 2017-05-26 18:14 | disposition home or self-care (01) | DRG 65 ==
LOC: CED 12:57 → CEDOF 18:37 → C3A PCU 19:22 → CEDOF 19:22 → CED 19:22 → C3A PCU 21:42 → CEDOF 21:42 → C3A PCU 21:42
PROVIDERS: Family Medicine
PROC: B32GYZZ Computerized Tomography (CT Scan) of Bilateral Vertebral Arteries using Other Contrast (ICD-10-PCS; principal; 2017-05-25)
PROC: B325YZZ Computerized Tomography (CT Scan) of Bilateral Common Carotid Arteries using Other Contrast (ICD-10-PCS; 2017-05-25)
DX: I63.19 Cerebral infarction due to embolism of other precerebral artery (principal); I50.32 Chronic diastolic (congestive) heart failure; I48.91 Unspecified atrial fibrillation; I11.0 Hypertensive heart disease with heart failure; Z68.43 Body mass index [BMI] 50.0-59.9, adult; E44.1 Mild protein-calorie malnutrition; J44.9 Chronic obstructive pulmonary disease, unspecified; F32.9 Major depressive disorder, single episode, unspecified; F41.9 Anxiety disorder, unspecified; G47.33 Obstructive sleep apnea (adult) (pediatric); I35.0 Nonrheumatic aortic (valve) stenosis; K21.9 Gastro-esophageal reflux disease without esophagitis; Z87.891 Personal history of nicotine dependence; E11.9 Type 2 diabetes mellitus without complications; H53.462 Homonymous bilateral field defects, left side; E66.01 Morbid (severe) obesity due to excess calories
CPT/HCPCS: 70450; 70496; 70498; 70551; 80048; 80053; 80061; 80076; 80307; 81003; 82550; 82553; 82607; 82947; 83036; 83735; 84443; 84484; 85025; 85027; 86140; 92610; 93005; 93306; 94760; 97162; 97165; 99285; G8978-GP; G8979-GP; G8987-GO; G8988-GO; G8989-GO; G8996-GN; G8997-GN; G8998-GN; J2060; Q9967

== ENCOUNTER 2017-06-04 16:41 | Inpatient (IN) | payer MEDICARE, OTHER ==
[~2017-06-04] VITALS: Ht 154.9 cm; Wt 116.8 kg
--- NOTE | ~2017-06-04 | DS ---
Unit #: [id number] #: [id number] Patient: JENNIFER VILLARREAL [id number] [address] [address] [id number] I MR#: [id number] NAME: JENNIFER VILLARREAL ROOM: [facility] Age: 66 Sex: F Admission Date: 06/04/2017 : 1950 Discharge Date: 06/07/2017 Attending Physician: Thai Sorto M.D. Primary Care Physician: Reina Riojas M.D. DISCHARGE SUMMARY DISCHARGE DIAGNOSES 1. Intractable nausea and vomiting. 2. Ileus. 3. Urinary tract infection. HOSPITAL COURSE The patient is a 66-year-old female, admitted 06/04/2017 secondary to intractable nausea and vomiting. CT of her abdomen showed small bowel obstruction vs ileus. Urinalysis resulted concerning for urinary tract infection. The patient was seen in consultation by surgery who recommended conservative management. The patient's nausea and vomiting resolved and at this time the patient is tolerating diet without difficulty. The patient was noted to have E. coli growing in her urine and is being discharged at this time on Keflex. Again, given resolution of her nausea, vomiting and toleration of a diet, and diagnosed urinary tract infection, the patient is being discharged home without incident at this time. DISCHARGE MEDICATIONS 1. Lopressor 25 mg p.o. b.i.d. 2. Xarelto 20 mg daily 3. Vitamin D 2000 units daily 4. Carbamazepine 200 mg p.o. t.i.d. 5. Omeprazole 40 mg daily 6. Lipitor 40 mg daily 7. Metformin 500 mg p.o. b.i.d. 8. Ventolin two puffs q.i.d. p.r.n. shortness of breath FOLLOWUP The patient will follow up with her primary care provider at her next scheduled appointment. Dictated by... Thai Sorto M.D. MAGUI/gricel TD: 06/09/2017 10:53 Unit #: [id number] #: [id number] Patient: JENNIFER VILLARREAL JOB #: [id number] DISCHARGE SUMMARY Page 1 of 1 X Thai Sorto MD DISCHARGE SUMMARY
--- NOTE | ~2017-06-04 | CO ---
Unit #: [id number] #: [id number] Patient: JENNIFER VILLARREAL [id number] [address] [place], [place] [address] [id number] MR#: [id number] NAME: JENNIFER VILLARREAL ROOM: 312 Age: 66 Sex: F Admission Date: 06/04/2017 : 1950 Attending Physician: Thai Sorto M.D. Primary Care Physician: Reina Riojas M.D. Consultation Date: 06/05/2017 CONSULTATION REPORT CHIEF COMPLAINT Abdominal pain, nausea, vomiting. HISTORY OF PRESENT ILLNESS This is a 66-year-old lady, whom we were asked to see for diffuse abdominal pain and some nausea and vomiting that started approximately 24 hours ago. Her last bowel movement was yesterday. She said she has had over a dozen episodes of vomiting, which she described as bilious in nature. She said initially it looked like the meal that she had from the prior night. PAST MEDICAL HISTORY Significant for diabetes over 10 years that is controlled with oral medications. She has reflux. She has had a recent CVA, chronic history of hypertension, COPD, anxiety, and atrial fibrillation. PAST SURGICAL HISTORY She has had multiple hernia repairs. Her last of which was a couple of years ago where she had a complex repair with removal of mesh and repair of an enterotomy. She then had procedure performed where she had some fascial necrosis and underwent removal of mesh as well. She has also undergone a tubal ligation and . MEDICATIONS Please see med rec list for list of medications. She does take Xarelto. ALLERGIES She has allergies to sulfa, codeine, Benadryl, and Atrovent. SOCIAL HISTORY She has a history of tobacco use, but none now. There is no history of alcohol use. FAMILY HISTORY Her mom of some sort of unknown abdominal cancer. REVIEW OF SYSTEMS Negative for weight loss, fevers, or jaundice and is otherwise as above. She is not on oxygen at home. PHYSICAL EXAMINATION VITAL SIGNS: Temperature is 99.5, heart rate is 83, respiratory rate is 20, blood pressure is 111/63. BMI is 47. GENERAL: She is in no acute distress. Unit #: [id number] #: [id number] Patient: PHIL,JENNIFER HEENT: Pupils are equal and reactive to light and accommodation, and her extraocular muscles are intact. NECK: Without masses or bruits. LUNGS: Show good breath sounds bilaterally with equal air exchange. CARDIAC: Shows regular rate and rhythm without murmur. ABDOMEN: Soft. She is morbidly obese. There are no masses and no appreciable hernias. She has a retracted scar in the periumbilical region. There is no focal tenderness. EXTREMITIES: Without edema or cyanosis. NEUROLOGIC: She is alert and oriented. There are no focal deficits. DIAGNOSTIC STUDIES LABORATORY RESULTS: Glucose is 149. White blood count 17,000, hemoglobin is 13. IMAGING STUDIES: CT scan was done, which showed an incidental gallstone without any inflammation and she had some nonspecific dilatation of the small bowel. There is no transition zone seen. OVERALL IMPRESSION This is a 66-year-old lady, who has either ileus versus partial small bowel obstruction. I think it is less likely that she has acute cholecystitis. There is no tenderness in the right upper quadrant. Also given her history of long-standing diabetes, she could have a component of gastroparesis. Given her recent cerebrovascular accident, atrial fibrillation, and Xarelto, we will try to manage this with without surgery if possible. Our plan is to try clear liquid diet. If nausea and vomiting persistent, we will check an ultrasound of her gallbladder and possibly gastric emptying study. Dictated by... Moose Mike III, M.D. VCL/alexis TD: 06/05/2017 08:13 JOB #: [id number] CONSULTATION REPORT Page 1 of 1 X Moose Mike III, MD CONSULTATION REPORT
--- NOTE | ~2017-06-04 | CT4 ---
[facility] A Service of [facility] RADIOLOGY TEXT RESULTS PATIENT: JENNIFER VILLARREAL LOCATION: A 312-01 : [birth year] UNIT #: [id number] AGE: [address]: Thai Sorto MD SEX: F ORDER DR: [id number] [facility] [address] [facility] [place], [place] [address] [id number] I MR#: [id number] #: [id number] NAME: JENNIFER VILLARREAL : 1950 SEX: F STUDY DATE/TIME: 06/04/2017 20:23 UNIT: C3A PCU ROOM: 312 STUDY DESCRIPTION: CT Abd and Pelv Wo Cont Attending Physician: Thai Sorto M.D. Ordering Physician: Ruy Hooper, [id number] Primary Care Physician: Reina Riojas M.D. MEDICAL IMAGING REPORT This report is preliminary unless electronic signature is present EXAM CT abdomen and pelvis without contrast HISTORY Abdomen pain and nausea and vomiting since yesterday. TECHNIQUE This CT exam was performed with one or more of the following radiation dose reduction techniques: automatic control, adjustment of mA and/or kV according to patient size, and iterative reconstruction. FINDINGS CT abdomen and pelvis was performed without contrast CT ABDOMEN: 1.6 cm peripherally calcified gallstone. No gallbladder distension or wall thickening or biliary dilatation. No ascites or inflammatory stranding. The spleen, pancreas, kidneys, and adrenal glands are normal. Proximal infrarenal abdominal aortic aneurysm measures 3.5 cm and is similar to CT 07/09/2014. Mild dilatation of several small bowel loops in the mid and low abdomen and pelvis, suggesting small bowel ileus or partial low grade mid small bowel obstruction, but no definite transition point is identified. Normal appendix. CT PELVIS: Anterior midline abdominal wall hernia repair. No free fluid. The uterus and adnexa are unremarkable. IMPRESSION 1. Mild dilatation of small bowel in the mid and lower abdomen and pelvis could be due to localized ileus or low grade partial mid abdominal small bowel obstruction but no focal transition point is identified. 2. Normal appendix. 3. Incidental gallstone with no gallbladder distension or biliary STS. [facility] A Service of [facility] RADIOLOGY TEXT RESULTS PATIENT: JENNIFER VILLARREAL LOCATION: [facility] 312-01 : [birth year] UNIT #: [id number] AGE: [address]: Thai Sorto MD SEX: F ORDER DR: dilatation. 4. 3.5 cm infrarenal abdominal aortic aneurysm is stable. 5. Normal appendix. Dictated by... Ric Morales M.D. THIS IS AN ELECTRONICALLY VERIFIED REPORT Ric Morales M.D. at 06/05/2017 1:21 PM DFL/shirley TD: 06/05/2017 03:19 JOB #: [id number] MEDICAL IMAGING REPORT Page 1 of 1 COPY
--- NOTE | ~2017-06-04 | CO ---
Unit #: [id number] #: [id number] Patient: JENNIFER TIDWELL [id number] [address] [address] [id number] I MR#: [id number] NAME: JENNIFER TIDWELL ROOM: 312 Age: 66 Sex: F Admission Date: 06/04/2017 : 1950 Attending Physician: Thai Sorto M.D. Primary Care Physician: Reina Riojas M.D. Consultation Date: 06/06/2017 CONSULTATION REPORT CHIEF COMPLAINT Nausea, vomiting, diffuse abdominal pain, and constipation followed by diarrhea. We were asked to see for recent history of paroxysmal atrial fibrillation and low blood pressure, possible medication adjustments. HISTORY OF PRESENT ILLNESS Ms. Tidwell is a -gibf-pjf, white female, who was just here 05/24 through the 05/26, at that time, she had an acute large right-sided [employer] stroke and diagnosed with new onset paroxysmal atrial fibrillation and diastolic congestive heart failure. She presents this admission with several days of diffuse abdominal discomfort. She had nausea, vomiting as well as constipation and then she took some medication and then that was followed by diarrhea. She states she just felt generally fatigued and weak all over, so she came into the hospital. CT showed incidental gallstone without any inflammation and some nonspecific dilatation of the small bowel. Surgery is following. Currently, plan is for medical management unless she does not improve. If nausea and vomiting persist, we will check an ultrasound of her gallbladder and possibly gastric emptying study. PAST MEDICAL HISTORY 1. Hypertension. 2. History of echo in 2013 showed an EF of 60%. Mild mitral regurgitation and mild mitral stenosis. 3. She had an echocardiogram done 05/25/2017, which showed moderate concentric left ventricular hypertrophy. Bfdp-qa-npqqgzld aortic stenosis. Mild tricuspid regurgitation. Right ventricular systolic pressure of 35, txljmyfc-co-iqkzltud dilated left atrium with a normal left ventricular systolic function and grade 2 diastolic dysfunction. 4. History of TIA with CVA on 05/24/2017. 5. Diabetes mellitus. 6. Dyslipidemia. 7. COPD. 8. Anxiety and depression. 9. New onset atrial fibrillation on 05/24/2017. 10. Chronic diastolic congestive heart failure. 11. B12 deficiency. 12. Trigeminal neuralgia. 13. Possibly obstructive sleep apnea. 14. Chronic anemia. PAST SURGICAL HISTORY Tubal ligation, , and hernia surgery x2 with ventral hernia. Unit #: [id number] #: [id number] Patient: JENNIFER TIDWELL SOCIAL HISTORY She used to smoke 3 packs per day for 30 years. Quit smoking in 1998. No alcohol. No illicit drug use. FAMILY HISTORY Positive for diabetes, hypertension, and arteriosclerotic heart disease. HOME MEDICATIONS Albuterol mini-nebs q.i.d., Ventolin 2 puffs q.i.d. p.r.n., albuterol mini-nebs also p.r.n., metformin 500 mg b.i.d., Lipitor 40 mg daily, Lopressor 25 mg b.i.d., Prinivil 40 mg daily, omeprazole 40 mg daily, carbamazepine 200 mg t.i.d., Xarelto 20 mg daily, vitamin D 2000 international units daily, and Cardizem 30 mg t.i.d. ALLERGIES To sulfa, codeine, Benadryl, and ipratropium from Atrovent. REVIEW OF SYSTEMS No chest pain. No chest pressure. No shortness of air. No lower extremity edema. Positive for nausea, vomiting, and abdominal diffuse pain, continues with right upper quadrant discomfort. No palpitations. No syncope. No near syncope. No hematuria. No melena. No bright red bleeding per rectum. PHYSICAL EXAMINATION GENERAL: Obese white female, in no acute distress. VITAL SIGNS: Temperature 97.7; pulse 89; respirations 16; blood pressure 99/50, lowest blood pressure has been 79/43 which was on 06/05 at 7:20; 5 feet 1 inch, weight 115.6 kg, BMI 47. HEENT: Normocephalic, atraumatic. No xanthelasma. Pupils equal, round, reactive to light. Extraocular movements intact. NECK: No jugular venous distention. No elevated CVP. HEART: S1 and S2. 2/6 murmur. Atrial fibrillation currently. Admitted with normal sinus rhythm, S1 and S2. LUNGS: Clear to auscultation anteriorly and posteriorly bilaterally. ABDOMEN: Obese. Decreased bowel sounds. No clubbing, cyanosis, or edema. 2+ pulses bilaterally. SKIN: Warm and dry. Speech is clear and appropriate. No obvious defect with conversation. Moving all extremities spontaneously. In the bed, unable to assess if there is any weakness from one side or the other with the patient in the bed. DIAGNOSTIC STUDIES IMAGING RESULTS: CT as noted above. LABORATORY RESULTS: Sodium 141, potassium 4.2, chloride 108, CO2 of 20, BUN 32, creatinine 1.7, glucose 79, total bilirubin 0.9, bilirubin direct 0.2, bilirubin indirect 0.7, AST 19, ALT 16, alkaline phosphatase 143, amylase 42, and lipase 35. BNP was 25. TSH last admission 05/25 was 1.91. Yzpqm-mm-skmj troponin was less than 0.05. Hemoglobin 11.8, hematocrit 38.2, white blood cell count 8.0, and platelet count 224. UA shows leukocyte esterase 2+, urobilinogen 0.2, and blood 3+. Urine cultures positive for gram-negative rods, greater than 100,000. ASSESSMENT AND PLAN 1. Paroxysmal atrial fibrillation. Admitted with normal sinus rhythm, now atrial fibrillation. On anticoagulation. Unit #: [id number] #: [id number] Patient: JENNIFER TIDWELL 2. Hypotension, currently on calcium channel vanessa, beta vanessa, and KYREE inhibition. 3. Status post recent posterior cerebral artery stroke, 05/24/2017. 4. Diabetes. 5. Dyslipidemia. 6. Chronic obstructive pulmonary disease. 7. Ileus versus partial small bowel obstruction with surgery following. Currently, no surgery planned. 8. Urinary tract infection. Gram-negative rods. She is currently being treated with IV fluids and Rocephin. KYREE inhibition has been stopped by the primary care physician. Dr. Irving to follow for any further recommendations. Dictated by... Anat Burks/alexis TD: 06/07/2017 02:05 JOB #: [id number] CONSULTATION REPORT Page 1 of 1 X X CONSULTATION REPORT
--- NOTE | ~2017-06-04 | HP ---
Unit #: [id number] #: [id number] Patient: JENNIFER VILLARREAL [id number] [address] [address] [id number] I MR#: [id number] NAME: JENNIFER VILLARREAL ROOM: 312 Age: 66 Sex: F Admission Date: 06/04/2017 : 1950 Attending Physician: Thai Sorto M.D. Primary Care Physician: Reina Riojas M.D. HISTORY AND PHYSICAL CHIEF COMPLAINT Nausea and vomiting. DISCUSSION This is a 66-year-old female with a history of diabetes, history of mild vitamin B12 deficiency, anxiety, depression, trigeminal neuralgia, hypertension, COPD, probable obstructive sleep apnea, obesity, and chronic systolic CHF. She was recently admitted here in [facility] on 05/24/17 with chief complaining of visual changes and, at that time, she was admitted and workup on CT scan revealed subacute infarct of right parietooccipital region. Neurology was consulted. She was also found to have paroxysmal AFib. She underwent 2D echocardiogram. Her CHADS scores were more than 2. She was started on Xarelto from 05/31/17. On workup, also, in the hospital, she had a CT angiogram, which showed high-grade stenosis of distal right posterior cerebral artery. She was evaluated by Dr. Sanabria in the hospital and cardiology, Dr. Nazario. Eventually, on 05/26/17, she was discharged home. She is coming back today with chief complaining of nausea, vomiting, and upper abdominal discomfort. She said her symptoms started yesterday and today, she has been throwing up all the time. She came in the ER. On workup, she has been found to have, on CT scan, questionable small bowel obstruction versus ileus and, also, gallstones and urine concerning for UTI, being admitted though she denies chest pain. She nausea, vomiting, headache, loss of consciousness, or any other new complaint. PAST MEDICAL HISTORY 1. Recent subacute right occipital cardioembolic CVA. 2. Paroxysmal AFib. 3. 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 4. History of mild B12 deficiency, vitamin B12 level 229. 5. Diabetes, A1c 6 on recent admission this year, May 2017. 6. History of anxiety/depression. 7. Hypertension. 8. COPD. 9. Probable obstructive sleep apnea. 10. Morbid obesity. 11. History of chronic diastolic congestive heart failure. 12. Iaqz-gd-cxlizcah aortic stenosis/moderate mitral regurgitation. 13. History of chronic anemia. 14. GERD. 15. History of TIA in the past. 16. Trigeminal neuralgia. Unit #: [id number] #: [id number] Patient: JENNIFER VILLARREAL PAST SURGICAL HISTORY 1. History of tubal ligation. 2. C section. 3. History of hernia surgery x2, ventral hernia. SOCIAL HISTORY She used to smoke 3 packs per day for 30 years, but she quit smoking in 1998. Denies alcohol. Denies illicit drug use. FAMILY HISTORY Positive for diabetes, hypertension, and coronary artery disease. MEDICATIONS From home are following. Current medications are: 1. Cardizem 30 mg p.o. 3 times a day. 2. Albuterol via nebulizer 4 times a day p.r.n. 3. Ventolin 2 puffs 4 times a day p.r.n. 4. Metformin 400 mg twice a day. 5. Lipitor 40 mg daily. 6. Lopressor 25 mg p.o. twice daily. 7. Prinivil 40 mg daily. 8. Omeprazole 40 mg daily. 9. Carbamazepine 200 mg 3 times a day. 10. Xarelto 20 mg daily. 11. Vitamin D 2000 international units daily. REVIEW OF SYSTEMS All review of systems negative, except history of present illness. PHYSICAL EXAMINATION GENERAL APPEARANCE: Middle-aged female lying in the bed comfortably. Currently not in any distress. She is alert, awake, and oriented x3. VITAL SIGNS: Current vitals are following: Temperature 97.9, heart rate 95, respiratory rate 13, and blood pressure 99/72. HEENT: Head is normocephalic and atraumatic. NECK: Supple. No JVD. No thyromegaly. HEART: S1 and S2. Regular rate and rhythm. LUNGS: Clear to auscultation. No rhonchi. No wheezing. ABDOMEN: Mildly distended. Decreased bowel sounds, but no guarding. No rigidity. EXTREMITIES: Inspection normal. No cyanosis, no clubbing, and no edema. NEUROLOGICAL: She is alert and oriented x3. Cranial nerves, II-XII, are intact. Power 5/5 on both sides. SKIN: Warm and dry. PSYCH: Normal mood and affect. DIAGNOSTIC STUDIES LABORATORY: Workup is following today: Sodium 138, potassium 4.1, chloride 104, CO2 27, glucose 149, BUN 17, and creatinine 1.2. LFTs within normal limits. White count 17, hemoglobin 5, hematocrit 13, and platelets 330. Urine indicates cloudy appearance, LE +2, and WBCs 10-25. Troponin less than 0.05. IMAGING: CT scan shows mild dilatation of small bowel suspicious small bowel obstruction versus ileus and positive gallstones, 3.5 cm infrarenal abdominal aortic aneurysm. Unit #: [id number] #: [id number] Patient: JENNIFER VILLARREAL ASSESSMENT AND PLAN 1. Intractable nausea and vomiting with abnormal CT scan suspicious for small bowel obstruction versus ileus. Keep the patient NPO except medications. Ask general surgery, LSA, to evaluate. 2. UTI. Start on IV Rocephin. 3. Gallstones on CT scan. 4. History of recent subacute right occipital cardioembolic CVA with high-grade stenosis of distal right posterior cerebral artery. She just started on Xarelto. 5. Paroxysmal AFib converted to normal sinus rhythm. Continue Xarelto. Rate is controlled on Cardizem and metoprolol. 6. Infrarenal abdominal aortic aneurysm, 3.5 cm, on CT scan. 7. Diabetes. Hold metformin and place on sliding scale. A1c recently 6. 8. Mild vitamin B12 deficiency on B12 supplements. 9. History of anxiety/depression. 10. Trigeminal neuralgia. 11. Hypertension. 12. COPD. 13. Probable obstructive sleep apnea. 14. History of chronic diastolic CHF. 15. Aixu-sm-tialgwah aortic stenosis/mild MR. 16. DVT prophylaxis on Xarelto. Dictated by Navi Ospina M.D. NATHAN/grace TD: 06/05/2017 12:04 JOB #: [id number] HISTORY AND PHYSICAL Page 1 of 1 X X HISTORY AND PHYSICAL
--- NOTE | ~2017-06-04 | BMI ---
[facility] Nutrition Therapy DATE: 06/05/17 Patient: JENNIFER VILLARREAL Physician: TIM Address: [address] Room/Bed: [address] [place] [address], Zip: [place] [address] Admit Date: 06/04/17 Date of : [birth year] Height: 5 1 Weight: 251 114 HIGH BMI NOTE: ANTHROPOMETRICS: HT: 61" WT: 114 KG BMI: 47.5 DIET: CLEAR LIQUID RECOMMENDATIONS: 1. ONCE MEDICALLY FEASIBLE, ADVANCE TO A HEART HEALTHY DIET TOLERATED. Respectfully, SHAHID JACK RD, LD [employer] [facility] cc: client file
[~2017-06-04 16:41] MED LIST changes: +CARDIZEM30 MG PO; +CYANOCOBALAM1000 MCG PO; +XARELTO20 MG PO
[2017-06-04 18:56] LABS: URINE SOURCE CLEAN CATCH
[2017-06-04 19:11] LABS: BASOPHIL# 0.1 X10e3 (0-0.3); BASOPHIL% 0.3 % (0-2.5); EOSINOPHIL# 0.1 X10e3 (0-0.7); EOSINOPHIL% 0.3 % (0.0-7.0); HEMATOCRIT 42.9 % (35.0-45.0); HEMOGLOBIN 13.2 gm/dL (12.0-16.0); LYMPHOCYTE# 0.7 X10e3 (1.0-3.5); LYMPHOCYTE% 3.9 % (17.0-45.0); MEAN CELL VOLUME 83.7 FL (83-96); MEAN CORPUSCULAR HEMOGLOBIN 25.7 PG (28-34); MEAN CORPUSCULAR HGB CONC 30.7 g/dL (30-36); MEAN PLATELET VOLUME 10.3 FL (6.5-11.5); MONOCYTE# 0.6 X10e3 (0-1.0); MONOCYTE% 3.5 % (3.0-12.0); NEUTROPHIL# 15.9 X10e3 (1.5-7.1); PLATELET COUNT 330 X10e3 (140-420); RED BLOOD COUNT 5.12 X10e (3.90-5.30); WHITE BLOOD COUNT 17.3 X10e3 (4.0-10.5)
[2017-06-04 19:12] LABS: DIFF IND YES
[2017-06-04 19:12] LABS: URINE APPEARANCE CLOUDY; URINE BILIRUBIN NEG (NEG); URINE BLOOD 3+ (NEG); URINE COLOR YELLOW; URINE GLUCOSE NEG (NEG); URINE KETONE NEG (NEG); URINE LEUKOCYTE ESTERASE 2+ (NEG); URINE NITRATE NEG (NEG); URINE PH 5.5 (5-8); URINE PROTEIN NEG (NEG); URINE SPECIFIC GRAVITY 1.004 (1.003-1.035); URINE UROBILINOGEN 0.2 MG/DL (NEG)
[2017-06-04 19:17] LABS: CULTURE INDICATED? YES; URBCS1 AUWI 0-2 /[HPF] (0-2); URINE BACTERIA AUWI 4+ (NEGATIVE); URINE SQUAMOUS EPITHELIAL CELL MANY /[HPF]
[2017-06-04 19:20] LABS: POC - CKMB 6.9 ng/mL (0.0-7.9); POC - TROPONIN <0.05 ng/mL (<=0.05)
[2017-06-04 19:40] LABS: ANISOCYTOSIS MOD; PLATELET ESTIMATE NORMAL (NORMAL); POIKILOCYTOSIS MOD
[2017-06-04 19:52] LABS: ALBUMIN SERUM 4.3 g/dL (3.5-5.0); BILIRUBIN, DIRECT 0.2 mg/dL (0.0-0.2); BILIRUBIN,INDIRECT 0.7 mg/dL (0.0-0.9); BILIRUBIN,TOTAL 0.9 mg/dL (0.2-2.0); BUN/CREATININE RATIO 14.16; CALCIUM SERUM 9.5 mg/dL (8.4-10.2); CREATININE SERUM 1.2 mg/dL (0.6-1.4); GLOM FILT RATE Estimated 46.7 mL/min (>60); POTASSIUM 4.1 mmol/L (3.5-5.1); PROTEIN TOTAL SERUM 8.2 g/dL (6.0-8.3)
[2017-06-04] MEDS ORDERED: ALBUTEROL20 ml NEB (22:47)
[2017-06-04] MEDS ORDERED: ALBUTEROL17 GM INH (22:48)
[2017-06-04] MEDS ORDERED: METFORMIN HCL500 M1 PO (22:49)
[2017-06-04] MEDS ORDERED: LIPITOR40 MG PO (22:50)
[2017-06-04] MEDS ORDERED: LOPRESSOR PO (22:50)
[2017-06-04] MEDS ORDERED: OMEPRAZOLE40 M1 PO (22:51)
[2017-06-04] MEDS ORDERED: PRINIVIL40 MG PO (22:51)
[2017-06-04] MEDS ORDERED: CARBATROL200 MG PO (22:52)
[2017-06-04] MEDS ORDERED: XARELTO10 MG PO (22:55)
[2017-06-04] MEDS ORDERED: VITAMIN D22000 UNIT PO (22:55)
[2017-06-04] MEDS ORDERED: CARDIZEM30 M1 PO (22:57)
[2017-06-05 10:53] LABS: HEMATOCRIT 38.8 % (35.0-45.0); HEMOGLOBIN 11.9 gm/dL (12.0-16.0); MEAN CELL VOLUME 84.1 FL (83-96); MEAN CORPUSCULAR HEMOGLOBIN 25.9 PG (28-34); MEAN CORPUSCULAR HGB CONC 30.8 g/dL (30-36); MEAN PLATELET VOLUME 9.8 FL (6.5-11.5); RED BLOOD COUNT 4.62 X10e (3.90-5.30); RED CELL DISTRIBUTION WIDTH 16.2 % (11.0-15.5); WHITE BLOOD COUNT 9.7 X10e3 (4.0-10.5)
[2017-06-05 11:16] LABS: BUN/CREATININE RATIO 15.29; CALCIUM SERUM 8.7 mg/dL (8.4-10.2); CREATININE SERUM 1.7 mg/dL (0.6-1.4); GLOM FILT RATE Estimated 30.7 mL/min (>60); POTASSIUM 4.6 mmol/L (3.5-5.1)
[2017-06-06 06:36] LABS: HEMATOCRIT 38.2 % (35.0-45.0); HEMOGLOBIN 11.8 gm/dL (12.0-16.0); MEAN CORPUSCULAR HEMOGLOBIN 26.1 PG (28-34); MEAN CORPUSCULAR HGB CONC 30.7 g/dL (30-36); MEAN PLATELET VOLUME 10.5 FL (6.5-11.5); RED BLOOD COUNT 4.5 X10e (3.90-5.30); RED CELL DISTRIBUTION WIDTH 16.3 % (11.0-15.5)
[2017-06-06 06:54] LABS: BUN/CREATININE RATIO 18.82; CALCIUM SERUM 8.5 mg/dL (8.4-10.2); CREATININE SERUM 1.7 mg/dL (0.6-1.4); GLOM FILT RATE Estimated 30.7 mL/min (>60); POTASSIUM 4.2 mmol/L (3.5-5.1)
[2017-06-07 07:46] LABS: HEMATOCRIT 36.5 % (35.0-45.0); HEMOGLOBIN 11.2 gm/dL (12.0-16.0); MEAN CELL VOLUME 85.1 FL (83-96); MEAN CORPUSCULAR HEMOGLOBIN 26.1 PG (28-34); MEAN CORPUSCULAR HGB CONC 30.7 g/dL (30-36); MEAN PLATELET VOLUME 9.8 FL (6.5-11.5); RED BLOOD COUNT 4.29 X10e (3.90-5.30); RED CELL DISTRIBUTION WIDTH 16.3 % (11.0-15.5); WHITE BLOOD COUNT 7.5 X10e3 (4.0-10.5)
[2017-06-07 08:12] LABS: BUN/CREATININE RATIO 24.44; CALCIUM SERUM 8.9 mg/dL (8.4-10.2); CREATININE SERUM 0.9 mg/dL (0.6-1.4); GLOM FILT RATE Estimated 66.2 mL/min (>60); POTASSIUM 4.5 mmol/L (3.5-5.1)
== END 2017-06-07 15:30 | disposition home health service (06) | DRG 389 ==
LOC: CED 16:41 → C3A PCU 23:15 → CED 23:15 → CEDOF 23:15 → C3A PCU 06-05 02:19 → CEDOF 06-05 02:19 → C3A PCU 06-07 15:30
PROVIDERS: Emergency Medicine; Internal Medicine; Surgery
DX: K56.7 Ileus, unspecified (principal); N39.0 Urinary tract infection, site not specified; I95.9 Hypotension, unspecified; I11.0 Hypertensive heart disease with heart failure; I48.0 Paroxysmal atrial fibrillation; I50.32 Chronic diastolic (congestive) heart failure; E11.9 Type 2 diabetes mellitus without complications; B96.20 Unspecified Escherichia coli [E. coli] as the cause of diseases classified elsewhere; E53.8 Deficiency of other specified B group vitamins; F32.9 Major depressive disorder, single episode, unspecified; G50.0 Trigeminal neuralgia; R11.2 Nausea with vomiting, unspecified; K80.80 Other cholelithiasis without obstruction; Z86.73 Personal history of transient ischemic attack (TIA), and cerebral infarction without residual deficits; F41.9 Anxiety disorder, unspecified; J44.9 Chronic obstructive pulmonary disease, unspecified; G47.33 Obstructive sleep apnea (adult) (pediatric); I08.0 Rheumatic disorders of both mitral and aortic valves; Z79.01 Long term (current) use of anticoagulants; Z79.84 Long term (current) use of oral hypoglycemic drugs
CPT/HCPCS: 36415; 51701; 74176; 80048; 80076; 81003; 82150; 82553; 82947; 83690; 83880; 84484; 85025; 85027; 87086; 87088; 87186; 94760; 96361; 96374; 96375; 96376; 99285; C9113; J0696; J2405